=== PATIENT | male | born 1985 | race Caucasian/White ===

== ENCOUNTER 2016-10-15 11:55 | Emergency (ER) | payer OTHER ==
[2016-10-15 12:01] VITALS: BMI 35.9
[2016-10-15 12:12] LABS: PH,URINE 5.5 (4.5-8); URINE APPEARANCE Clear; URINE BILIRUBIN Negative (NEGATIVE); URINE GLUCOSE (UA) Negative (NEGATIVE); URINE KETONE Negative (NEGATIVE); URINE LEUK ESTERASE Negative (NEGATIVE); URINE NITRITE Negative (NEGATIVE); URINE PROTEIN Trace (NEGATIVE); URINE UROBILINOGEN 0.2 E.U/dl (0.2-1.0)
[2016-10-15 12:24] LABS: URINE BLOOD 3+ (NEGATIVE); URINE COLOR YELLOW
[2016-10-15] MEDS ORDERED: morphine CARPU-JECT 4 MG/1 ML DISP.SYRIN IVPUSH ONE (12:27)
[2016-10-15] MEDS ORDERED: ONDANSETRON 4 MG/2 ML VIAL ONE (12:27)
[2016-10-15] MEDS ORDERED: ONDANSETRON 4 MG/2 ML VIAL IVPB ONE (12:27)
[2016-10-15] MEDS ORDERED: KETOROLAC TROMETHAMINE 30 MG/1 ML VIAL ONE (12:27)
--- NOTE | 2016-10-15 12:27 | PDOC ---
Attending Attestation - Resident Resident Name: Lydia John - ED Attending Attestation I have performed the following: I have examined & evaluated the patient, The case was reviewed & discussed with the resident, I agree w/resident's findings & plan, Exceptions are as noted - HPI HPI: 10/15/16 13:02 31y M hx of GERD presents with several days of intermittent LLQ pain that radiates down to groin. Pt notes it is somewhat positional. No associated n/v, f /c, dysuria, hematuria, diarrhea although pt did have an episode of vomiting here in the ED. Constitutional - no reported Fever, Chills, HEENT: no reported vision changes, sore throat Respiratory: no reported cough, sob, hemoptysis Cardiac: no reported chest pain, palpitations, light headedness, leg swelling Abd/GI: +abd pain in L flank rad to groin no reported nausea, vomiting, blood per rectum, melena, diarrhea : no reported dysuria, frequency, discharge Musculskelatal - no reported back pain, joint swelling skin - no reported bruising, erythema, rash neurological: no reported headache, numbness, focal weakness, tingling, ataxia, hematologic: no reported anemia, easy bruising, easy bleeding GENERAL: The patient is awake, alert, and fully oriented, Nontoxic - in no acute distress. HEAD: Normocephalic, atraumatic. EYES: extraocular movements intact, sclera anicteric, conjunctiva clear. ENT: Normal voice, Moist mucous membranes. NECK: Normal range of motion, supple LUNGS: Breath sounds equal, clear to auscultation bilaterally. No wheezes, no rhonchi, no rales. HEART: Regular rate and rhythm, normal S1 and S2 without murmur, rub or gallop. ABDOMEN: Soft, mild diffuse L sided and lower abd tenderness, normoactive bowel sounds. No guarding, no rebound. No CVA tenderness : minimal epidimal tenderness, normal testicular lie, intact cremesteric reflex, no testicular tenderness, no erythema/edema EXTREMITIES: Normal range of motion, no edema. NEUROLOGICAL: No facial assymetry, Normal speech, moving all 4 extremeties spontaneously and symmetrically PSYCH: Normal mood, normal affect. SKIN: Warm, Dry, normal turgor, Differential includes torsion/epidiymidis vs. kidney stones pt received morphine for pain, zofran for nausea will start with US testicles, if neg may obtain CT abd w/o contrast 10/15/16 15:12 US neg for torsion/epidimydis UA+hematuria suspect stones, CT obtained revealing b/l stones and .4cm stone in L urter w/ hydro pts pain well controlled at this point. will dc the pt with uro fu wht supportive care at home. return precautions were discussed - Physicial Exam PE: 10/15/16 16:12 see above - Medical Decision Making 10/15/16 16:13 see above
[2016-10-15] MEDS ORDERED: morphine CARPU-JECT 4 MG/1 ML DISP.SYRIN ONE (12:31)
[2016-10-15 12:51] LABS: URINE BACTERIA RARE /hpf (NEGATIVE); URINE RBC >50 /hpf (0-3); URINE WBC 0-2 (3-5)
--- NOTE | 2016-10-15 12:57 | PDOC ---
History of Present Illness - General Chief Complaint: Pain, Acute Stated Complaint: ABD PAIN Time Seen by Provider: 10/15/16 11:56 History Source: Patient Exam Limitations: No Limitations - History of Present Illness Initial Comments: 10/15/16 12:42 31 year old generally healthy male with PMH of GERD and Gout presenting with three days of abdomin-pelvic pain radiating to his left testicle. He does not recall any inciting event but noticed this pain 3 days ago in his infra- abdominal crease that was a sharp 8/10 quality and radiating to his left testicle. The pain is worse with sitting and relieved by standing and defecation. He does endorse a darkening of his urine a few days ago that has since then cleared along with some urinary urgency occasionally. He came in today because the pain significantly worsened and began to radiate to his LLQ and LUQ. He denies history of abdominal surgeries, kidney stones, or other abdominal complaints in the past. Denies current chest pain, nausea, vomiting, diarrhea, fever, chills, or other sick symptoms. His hospital visits only include traumatic hospital visits for [facility] trauma. He is sexually active with multiple partners but only engages in unprotected intercourse with one partner who he has been with for 8-10 years. 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 He is a half pack per day smoker and weekend drinker. Past History - Past Medical History Allergies/Adverse Reactions: Allergies Allergy/AdvReac Type Severity Reaction Status Date / Time No Known Allergies Allergy Verified 10/15/16 11:56 Home Medications: Ambulatory Orders Allopurinol [Zyloprim -] 0 mg PO DAILY 10/15/16 Ibuprofen 400 mg PO Q4H PRN #42 tablet 10/15/16 Oxycodone HCl/Acetaminophen [Percocet 5-325 mg Tablet -] 1 combo PO Q6H PRN #14 tablet MDD 4 10/15/16 Pantoprazole Sodium [Protonix] 40 mg PO DAILY 10/15/16 Tamsulosin HCl 0.4 mg PO HS #7 cap.er.24h 10/15/16 GI Disorders: Yes (GERD) Other medical history: GOUT - Psycho/Social/Smoking Cessation Hx Anxiety: No Suicidal Ideation: No Smoking History: Current every day smoker Number of Cigarettes Smoked Daily: 10 Information on smoking cessation initiated: Yes 'Breaking Loose' booklet given: 10/15/16 Hx Alcohol Use: Yes Drug/Substance Use Hx: No Substance Use Type: Alcohol Review of Systems - Review of Systems Constitutional: No: Chills, Diaphoresis, Fever, Loss of Appetite, Night Sweats HEENTM: No: Blurred Vision, Double Vision Respiratory: Yes: Cough. No: Orthopnea, Shortness of Breath, SOB at Rest, Wheezing Cardiac (ROS): No: See HPI, Chest Pain, Irregular Heart Rate, Lightheadedness ABD/GI: No: Abdominal Distended, Abd. Pain w/ defecation, Blood Streaked Bowels , Constipated, Diarrhea, Nausea, Rectal Bleeding, Vomiting : Yes: Testicular Pain. No: Hematuria, Testicular Mass, Testicular Swelling Musculoskeletal: No: Back Pain, Muscle Pain Neurological: No: Headache, Numbness, Paresthesia Psychiatric: No: Anxiety, Depression Hematologic/Lymphatic: No: Blood Clots, Easy Bleeding, Easy Bruising *Physical Exam - Vital Signs Last Vital Signs Temp Pulse Resp BP Pulse Ox 97.6 F 85 18 138/108 100 10/15/16 11:56 10/15/16 11:56 10/15/16 11:56 10/15/16 11:56 10/15/16 11:56 - Physical Exam General Appearance: Yes: Appropriately Dressed, Mild Distress (Endorsing pain with movement) HEENT: positive: Pharyngeal Erythema, Hearing Grossly Normal. negative: Scleral Icterus (R), Excessive drooling Respiratory/Chest: positive: Lungs Clear, Normal Breath Sounds, Respiratory Distress, Rhonchi, Stridor, Wheezing Cardiovascular: positive: Regular Rhythm, Regular Rate, S1, S2, Edema, JVD, Murmur. negative: Bradycardia, Tachycardia Gastrointestinal/Abdominal: positive: Normal Bowel Sounds, Tender (Tender in left mid gastric and Left lower quadrant with exacerbation of radiation to left testical upn deep palpation), Flat, Soft, Tenderness. negative: Organomegaly, Pulsatile Mass, Distended, Guarding, Rebound, Hernia, Mass Male Genitalia: positive: testicular tenderness (Left sided testicular tenderness ), epididymus tender, other (Positive bilateral cremasteric reflex without smith clapper sign. Dermatomes intact throughout iguinal area.). negative: inguinal hernia, hernia Musculoskeletal: positive: CVA Tenderness (L) (Endorsed some left CVA tenderness that exacerbated his abdominal pain on the left side.). negative: CVA Tenderness (R) Extremity: positive: Normal Capillary Refill Integumentary: positive: Dry, Warm. negative: Cyanotic, Erythema ED Treatment Course - LABORATORY CBC & Chemistry Diagram: 10/15/16 12:36 10/15/16 12:36 - ADDITIONAL ORDERS Additional order review: Laboratory Results 10/15/16 12:04 Urine Color Yellow Urine Appearance Clear Urine pH 5.5 Ur Specific [place] 1.025 Urine Protein Trace Urine Glucose (UA) Negative Urine Ketones Negative Urine Blood 3+ H Urine Nitrite Negative Urine Bilirubin Negative Urine Urobilinogen 0.2 e.u/dl Ur Leukocyte Esterase Negative - Medications Given in the ED: ED Medications Discontinued Medications Generic Name Dose Route Start Last Admin Trade Name Guy PRN Reason Stop Dose Admin Morphine Sulfate 4 mg 10/15/16 12:27 10/15/16 12:35 Morphine Injection - IVPUSH 10/15/16 12:28 4 mg ONCE ONE Administration Ondansetron HCl 4 mg 10/15/16 12:27 10/15/16 12:30 Zofran Injection IVPB 10/15/16 12:28 4 mg ONCE ONE Administration Medical Decision Making - Critical Care Time Total Critical Care Time (minutes): 30 Critical Care Statement: The care of this patient involved high complexity decision making to prevent further life threatening deterioration of the patient 's condition and/or to evalute & treat vital organ system(s) failure or risk of failure. - Medical Decision Making 10/15/16 13:07 Young generally healthy male with left sided abdominal pain radiating to left testicle most concerning for renal calculus vs. epididymitis. The clinical picture is slightly skewed given tenderness to palpation of left epididymitis on presentation, however, the exam was repeated by the attending (after 2 MG IV morphne) the tenderness had resolved and the attending was not able to appreciate any swelling of the left testicle. Given his CVA tenderness this is more likely a renal stone particularly given he is at high risk or uric acid stone secondary to history of gout. Not likely a testicular torsion given lack of physical symptoms and more likely other diagnoses. CBC, CMP, UA, and testicular US were ordered. 13:00 his UA returned positive for hematuria further pointing us towards renal calculus. 13:05 he had an episode of nausea and vomiting after an extreme acute pain episode. He was given Zofran and IV morphine 2MG with significant improvement of symptoms. 13:31 He returned from ultrasound and was admitting to feeling much better than on his initial presentation. 10/15/16 13:40 CBC and BMP returned WNL 10/15/16 13:51 Scrotal US returned without any sign of testicular pathology. CT abdomen/ Pelvis ordered for renal stone evaluation. 10/15/16 15:24 CT returned with multiple stones bilaterally. The largest stone was on the right measuring 6mm with obstructive uropathy on the left side and a largest stone measuring 3.6MM. Patient was discharged with ibuprofen, tamsulosin, and vicodin. *DC/Admit/Observation/Transfer Diagnosis at time of Disposition: Nephrolithiasis - Discharge Dispostion Disposition: HOME Condition at time of disposition: Improved Admit: No - Referrals Referrals: Houston Haines MD [Staff Physician] - - Patient Instructions Printed Discharge Instructions: Kidney Stones -- Adult Additional Instructions: You were seen because you were having abdominal pain that was shooting down to your left testicle. We took a look at your testicles with an ultrasound and didn't see signs of infection or twisting. We took a look at your urine and saw that there was blood in it which is most likely a sign of a kidney or urinary stone. We did a CT of your kidneys and saw a stone in the left side. This stone is fairly small and should pass on its own. We have given you pain medication for the next week that you can take until the stone passes. In order to prevent this, you must stay hydrated with clear water and avoid sugary drinks. You have gout which puts you at higher risk of specific types of kidney stones as well. Please return to the ED if you notice significant amounts of blood in your urine , stop urinating over the course of a day, or have pain that is not improving wit your pain medications. Print Language: THAI
[2016-10-15 12:59] LABS: BASOPHIL 0.6 % (0-2.0); MCH 30.4 pg (25.7-33.7); MCHC 34.3 g/dl (32.0-35.9); MEAN CELL VOLUME 88.3 fl (80-96); MEAN PLT VOLUME 9.1 fl (7.5-11.1); NEUTROPHILS 63.9 % (42.8-82.8); PLATELET COUNT 292 K/MM3 (134-434); RDW 12.7 % (11.9-15.9)
[2016-10-15 13:07] LABS: ALBUMIN 4.3 g/dl (3.5-5.0); ALK PHOS 65 U/L (32-92); ANION GAP 4 (8-16); BILIRUBIN,TOTAL 1.1 mg/dl (0.2-1.0); CALCIUM 9.2 mg/dl (8.4-10.2); CO2 27 mmol/L (22-28); GLUCOSE,RANDOM 105 mg/dl (74-106); SGOT/AST 29 U/L (10-42); SGPT/ALT 44 U/L (10-40); TOT PROT 7.1 g/dl (6.4-8.3)
[2016-10-15 13:51] VITALS: BP 129/84; PULSE 63; TEMP 98.4
== END 2016-10-15 15:31 | disposition home or self-care (01) ==
LOC: FER 11:55
PROC: 3E033NZ Introduction of Analgesics, Hypnotics, Sedatives into Peripheral Vein, Percutaneous Approach (ICD-10-PCS; principal; 2016-10-15)
PROC: 3E033GC Introduction of Other Therapeutic Substance into Peripheral Vein, Percutaneous Approach (ICD-10-PCS; 2016-10-15)
DX: N20.0 Calculus of kidney (principal); F17.210 Nicotine dependence, cigarettes, uncomplicated; K21.9 Gastro-esophageal reflux disease without esophagitis
CPT/HCPCS: 36415; 74176; 76870-TC; 80053; 81003; 81015; 85025; 96374; 96375; 99283-25